=== PATIENT | male | born 1965 | race Caucasian/White ===

== ENCOUNTER 2017-03-05 20:13 | Emergency (ER) | payer SELFPAY ==
[~2017-03-05] VITALS: Ht 182.9 cm; Wt 88.0 kg
[2017-03-05 20:14] VITALS: BP 161/96; PULSE 76; RESP 16; TEMP 97.9; O2SAT 98
[2017-03-05] MEDS ORDERED: LIDOCAINE HCL 1% PF 30 ML VIAL INFIL ONE (20:45)
[2017-03-05] MEDS ORDERED: TETANUS/DIPHTHERIA TOXOID ADULT 0.5 ML VIAL IM ONE (20:45)
--- NOTE | 2017-03-05 20:47 | PD ---
HPI Chief Complaint: Foreign Body Time Seen by Provider: 20:38 Travel History International Travel<30 days: No Contact w/Intl Traveler<30days: No Traveled to known affect area: No History of Present Illness HPI 51-year-old right-hand dominant patient presents for evaluation of foreign body to the right index finger. The patient reports that prior to arrival he was attempting to finish a catfish when the fish began flopping around and the catfish gaurav became embedded in the volar aspect of the proximal right index finger. There is associated pain, throbbing, constant, worse with palpation. He denies any other injuries. Last tetanus vaccination unknown. No other complaints. PFSH Past Medical History Medical History: Denies Significant Hx Diminished Hearing: No Tetanus Vaccination: Unknown Influenza Vaccination: No Social History Alcohol Use: Yes (MODERATELY) Tobacco Use: No Substance Use: No Allergies-Medications (Allergen,Severity, Reaction): Coded Allergies: Penicillin (Verified Allergy, Unknown, 03/05/17) Reported Meds & Prescriptions Reported Meds & Active Scripts Active Doxycycline Hyclate 100 Mg Cap 100 Mg PO BID 7 Days Lortab (Hydrocodone-Acetaminophen) 5-325 Mg Tab 1 Tab PO Q6H PRN Review of Systems Musculoskeletal: Positive: Pain, Other (positive for foreign body right index finger) Skin: Positive Other (positive for puncture wound, foreign body) Physical Exam Narrative GENERAL: Well-developed well-nourished patient in no acute distress SKIN: Warm and dry. There is a gaurav like foreign body bedded in the radial aspect of the proximal volar right index finger. Tender to palpation. Extremities: Skin as noted above. Full flexion and extension at the MCP, PIP and DIP joint of the affected finger. Distal sensation is intact. Capillary refill less than 2 seconds. Data Data Last Documented VS Vital Signs Date Time Temp Pulse Resp B/P Pulse Ox O2 Delivery O2 Flow Rate FiO2 03/05/17 20:14 97.9 76 16 161/96 98 Room Air Orders Finger ([id number]) (03/05/17 ) Tetanus/Diphtheria Tox Adult (Tetanus/Di (03/05/17 20:45) Lidocaine Pf 1% Inj (Xylocaine-Mpf 1% In (03/05/17 20:45) Finger ([id number]) (03/05/17 ) Doxycycline (Vibramycin) (03/05/17 21:15) Acetamin-Hydrocod 325-5 Mg ([place] 5-325 (03/05/17 21:15) MDM Medical Decision Making Medical Screen Exam Complete: Yes Emergency Medical Condition: Yes Medical Record Reviewed: Yes Differential Diagnosis Retained foreign body, puncture wound, flexor tendon injury Narrative Course 51-year-old patient presents with retained catfish gaurav embedded in the radial volar aspect of the proximal right index finger. Plan is for x-ray imaging to fully visualize the object. The plan is then to perform a digital block and remove the object, the patient verbally consents. Tetanus status updated. After the removal of the foreign body local wound care was provided. Repeat x- ray reveals that the whole foreign body was removed. The patient is being discharged with doxycycline prophylactically as well as Lortab for pain control. Given the location of the wound, high risk for infection, recommended outpatient follow-up with hand surgeon in 5-7 days for recheck. Procedures Procedure Narrative Foreign body removal: The right index finger was prepped with Betadine. Digital block performed with 1% lidocaine. Attempted to pull the foreign body out of the entrance wound with forceps however the barbs impeded progress. Therefore a exit wound was created using #11 scalpel. The foreign body was then pushed through the exit wound. Both wounds were irrigated with normal saline. Local wound care provided. Patient tolerated procedure well. Diagnosis Primary Impression: Foreign body of right hand Qualified Code: S60.551A - Foreign body of right hand, initial encounter Referrals: Margy Lyman MD Additional Instructions: Take the antibiotics as prescribed. Wash the wound twice a day with soap and water and apply antibiotic cream. Follow-up with hand surgeon such as Dr. Lyman in 5-7 days for recheck. Return for evidence of worsening infection such as increasing redness around the wounds, red streaks up the arm, pus coming from the wounds, fevers. Med/Other Pt SpecificInfo: Prescription(s) given, Wound Care Scripts Doxycycline Hyclate 100 Mg [id number] Mg PO BID 7 Days Ref 0 Prov:Mac Dunlap MD 03/05/17 Hydrocodone-Acetaminophen (Lortab)5-325 Mg Tab1 Tab PO Q6H PRN (PAIN) #15 TAB Ref 0 Prov:Mac Dunlap MD 03/05/17 Disposition: 01 DISCHARGE HOME Condition: Stable Ra Barroso March 05, 2017 20:47
[2017-03-05] MEDS ORDERED: HYDR-3533 PO (21:12)
[2017-03-05] MEDS ORDERED: DOXY100C PO (21:12)
[2017-03-05] MEDS ORDERED: DOXYCYCLINE HYCLATE 100 MG CAP PO ONE (21:15)
[2017-03-05] MEDS ORDERED: ACETAMINOPHEN/HYDROcodone 325 MG/5 MG TAB PO ONE (21:15)
--- NOTE | 2017-03-05 21:46 | RADRPT ---
EXAM DATE/TIME: 03/05/2017 20:50 [facility] COMPARISON: No previous studies available for comparison. INDICATIONS : Foreign body from catfish. MEDICAL HISTORY : None. SURGICAL HISTORY : None. ENCOUNTER: Initial ACUITY: 1 day PAIN SCORE: 0/10 LOCATION: Bilateral chest FINDINGS: A catfish gaurav protrudes into the palmar soft tissues the proximal aspect of the index finger extendi ng from a radial direction in an ulnar direction nearly to the second/third finger web space. The bon y elements appear intact and unremarkable throughout. CONCLUSION: Catfish gaurav as described Tin Moore MD on March 05, 2017 at 21:43 Board Certified Radiologist. This report was verified electronically.
--- NOTE | 2017-03-05 21:54 | RADRPT ---
EXAM DATE/TIME: 03/05/2017 21:14 [facility] COMPARISON: FINGER RIGHT 2ND DIGIT ([id number]), March 05, 2017, 20:50. INDICATIONS : Removal of foreign body from 2nd digit. MEDICAL HISTORY : None. SURGICAL HISTORY : None. ENCOUNTER: Initial ACUITY: 1 day PAIN SCORE: 0/10 LOCATION: Right finger FINDINGS: Foreign body has been removed from the index finger. No residual radiodense foreign object is identif ied. The bony elements are stable intac unremarkable. CONCLUSION: Foreign body removal Tin Moore MD on March 05, 2017 at 21:52 Board Certified Radiologist. This report was verified electronically.
== END 2017-03-05 21:34 | disposition home or self-care (01) ==
LOC: NEPD 20:13
DX: S61.240A Puncture wound with foreign body of right index finger without damage to nail, initial encounter (principal); W45.8XXA Other foreign body or object entering through skin, initial encounter; Z88.0 Allergy status to penicillin; Z23 Encounter for immunization
CPT/HCPCS: 10120; 73140; 90471; 90714